=== PATIENT | male | born 2000 | race African-American/Black ===

== ENCOUNTER 2020-08-19 21:54 | Emergency (ER) | payer OTHER ==
[2020-08-19] MEDS ORDERED: PENICILLIN V P500 MG PO (22:57)
== END 2020-08-19 23:04 | disposition home or self-care (01) ==
LOC: FER 21:54
DX: K02.9 Dental caries, unspecified (principal)
CPT/HCPCS: 99282; Q0163

== ENCOUNTER 2021-12-30 18:58 | Emergency (ER) | payer SELFPAY ==
[~2021-12-30 18:58] MED LIST: PENICILLIN V P500 MG PO
== END 2021-12-30 23:36 | disposition home or self-care (01) ==
LOC: FER 18:58
DX: M25.562 Pain in left knee (principal); M85.662 Other cyst of bone, left lower leg; F17.290 Nicotine dependence, other tobacco product, uncomplicated; Z28.310 Unvaccinated for COVID-19; X50.1XXA Overexertion from prolonged static or awkward postures, initial encounter; Y93.89 Activity, other specified; Y92.009 Unspecified place in unspecified non-institutional (private) residence as the place of occurrence of the external cause
CPT/HCPCS: 73560